=== PATIENT | female | born 1980 | race Two or more races ===

== ENCOUNTER 2017-11-07 08:39 | Outpatient (CLI) | payer OTHER ==
[~2017-11-07 08:39] MED LIST: CATAFLAM50 MG; FOLIC ACID10 GM MC; GILTUSS TR TAB1 EACH PO; LODINE200 MG PO; MILLIPRED5 MG; PLAQUENIL PO; PROVENTIL HFA6.7 GM IH; PROVENTIL3 ML/2.5 M IH; SKELAXIN800 MG PO; TESSALON PERLE100 MG PO; TYLENOL-CODEINE1 TAB PO; ZITHROMAX200 MG PO; ZITHROMAX500 MG PO; ZYRTEC10 MG PO; [UNRECOGNIZED DRUG - OTHER]; [UNRECOGNIZED DRUG - OTHER]; [UNRECOGNIZED DRUG - OTHER] PO
== END 2017-11-07 08:53 | disposition home or self-care (01) ==
LOC: RAD 501 08:39
DX: N62 Hypertrophy of breast (principal)

== ENCOUNTER 2017-11-16 06:00 | Day surgery (SDC) | payer OTHER | END 2017-11-16 18:10 | disposition home or self-care (01) | LOC: CIR.AMB 06:00 | DX: N62 Hypertrophy of breast (principal) ==

== ENCOUNTER → 2021-05-09 | Outpatient (CLI) | payer OTHER | END | disposition home or self-care (01) | LOC: NUCLEAR 07:00 | PROVIDERS: ATTEND Internal Medicine | DX: I25.10 Atherosclerotic heart disease of native coronary artery without angina pectoris (principal); I50.1 Left ventricular failure, unspecified | CPT/HCPCS: 78452; 93017; A9500 ==

== ENCOUNTER 2022-02-16 05:44 | Day surgery (SDC) | payer OTHER ==
[~2022-02-16] VITALS: Ht 170.2 cm; Wt 74.4 kg
[~2022-02-16 05:44] MED LIST changes: +ATACAND16 MG PO; +LIPITOR20 MG PO
[2022-02-16] MEDS ORDERED: MORGIDOX100 MG PO (08:20)
[2022-02-16] MEDS ORDERED: NAPR500T14 PO (08:20)
== END 2022-02-16 13:45 | disposition home or self-care (01) ==
LOC: CIR.AMB 05:44
PROVIDERS: ATTEND Obstetrics & Gynecology
DX: N84.0 Polyp of corpus uteri (principal); Z20.822 Contact with and (suspected) exposure to COVID-19; I10 Essential (primary) hypertension; Z95.5 Presence of coronary angioplasty implant and graft; E78.5 Hyperlipidemia, unspecified; J45.909 Unspecified asthma, uncomplicated; Z86.16 Personal history of COVID-19